=== PATIENT | female | born 1955 | race American Indian/Alaskan Native ===

== ENCOUNTER 2016-08-15 12:34 | Emergency (ER) | payer MEDICARE, OTHER ==
[2016-08-15 13:22] LABS: Basophils % (Auto) 0.7 % (0.0-1.8); Eosinophils % (Auto) 0.6 % (0.0-4.3); Hematocrit 39.5 % (30.3-42.9); Hemoglobin 13.1 gm/dl (10.1-14.3); Mean Corpuscular HGB Conc 33 % (30-34); Mean Corpuscular Hemoglobin 30 pg (28-32); Mean Corpuscular Volume 91 fl (79-97); Platelet Count 328 K/mm3 (140-440); Red Blood Count 4.32 M/mm3 (3.65-5.03); White Blood Count 4.9 K/mm3 (4.5-11.0)
[2016-08-15 13:39] LABS: INR 0.92 (0.87-1.13)
[2016-08-15 13:40] LABS: Partial Thromboplastin Time 30.9 Sec. (24.2-36.6)
[2016-08-15 13:49] LABS: Anion Gap 18 mmol/L; Blood Urea Nitrogen 46 mg/dL (7-17); Calcium 9.1 mg/dL (8.4-10.2); Carbon Dioxide 27 mmol/L (22-30); Chloride 97.9 mmol/L (98-107); Glucose 108 mg/dL (65-100); Sodium 140 mmol/L (137-145)
[2016-08-15 14:30] VITALS: BP 151/88
[2016-08-15] MEDS ORDERED: NACL 0.9% 1000 ML 1,000 ML IV ONE (14:43)
--- NOTE | 2016-08-15 14:49 | Emergency Department Report ---
ED Neuro Deficit HPI - General Chief Complaint: Neuro Symptoms/Deficit Stated Complaint: POSS STROKE Time Seen by Provider: 08/15/16 14:34 Source: patient Mode of arrival: Ambulatory Limitations: No Limitations - History of Present Illness Initial Comments: 60-year-old female presents to the emergency department complaining of slurred speech. Patient reports symptoms have been present for 3 days. She states her son has told her that it looks like the left side of her face is drooping. She denies headache. She denies numbness or tingling. She also denies weakness in her extremities. There are no other complaints. -: Gradual, days(s) (3) Location: speech, left face Presenting Symptoms: Present: Facial Droop/Numbness, Unable to Speak Clearly History of same: No Place: home Severity: mild Improves With: none Worsens With: none On Anticoagulants: No Context: gradual onset Associated Symptoms: denies other symptoms Treatments Prior to Arrival: none - Related Data Home Medications: Previous Rx's Medication Instructions Recorded Last Taken Type Cyclobenzaprine HCl [Flexeril] 10 mg PO TID #20 tablet 09/17/13 Unknown Rx HYDROcodone/APAP 5-325 [Badger 1 each PO Q6HR PRN #20 tablet 09/17/13 Unknown Rx 5/325 mg] Ibuprofen [Motrin] 600 mg PO Q8H PRN #50 tablet 09/17/13 Unknown Rx Allergies/Adverse Reactions: Allergies Allergy/AdvReac Type Severity Reaction Status Date / Time No Known Allergies Allergy Verified 08/15/16 12:42 ED Review of Systems ROS: Stated complaint: POSS STROKE Other details as noted in HPI Comment: All other systems reviewed and negative Neurological: as per HPI. denies: weakness, numbness, paresthesias ED Past Medical Hx - Past Medical History Previous Medical History?: Yes Hx Hypertension: Yes Hx Renal Disease: Yes Hx Psychiatric Treatment: Yes - Surgical History Hx Cholecystectomy: Yes - Family History Family history: no significant - Social History Smoking Status: Current Every Day Smoker Substance Use Type: Alcohol - Medications Home Medications: Home Medications Medication Instructions Recorded Confirmed Last Taken Type Cyclobenzaprine HCl [Flexeril] 10 mg PO TID #20 tablet 09/17/13 Unknown Rx HYDROcodone/APAP 5-325 [Badger 1 each PO Q6HR PRN #20 tablet 09/17/13 Unknown Rx 5/325 mg] Ibuprofen [Motrin] 600 mg PO Q8H PRN #50 tablet 09/17/13 Unknown Rx ED Neuro Physical Exam - General Limitations: No Limitations General appearance: alert, in no apparent distress Suspected Stroke: Yes - Head Head exam: Present: atraumatic, normocephalic - Eye Eye exam: Present: normal appearance, PERRL, EOMI - ENT ENT exam: Present: normal exam, normal orophraynx, mucous membranes moist - Neck Neck exam: Present: normal inspection, full ROM. Absent: tenderness - Respiratory Respiratory exam: Present: normal lung sounds bilaterally. Absent: respiratory distress - Cardiovascular Cardiovascular Exam: Present: regular rate, normal rhythm, normal heart sounds - GI/Abdominal GI/Abdominal exam: Present: soft, normal bowel sounds. Absent: distended, tenderness - Extremities Exam Extremities exam: Present: normal inspection, full ROM. Absent: tenderness - Back Exam Back exam: Present: normal inspection, full ROM. Absent: tenderness - Neurological Exam Neurological exam: Present: alert, oriented X3. Absent: motor sensory deficit - NIHSS Assessment Interval: Baseline 1a. Level of Consciousness: alert 1b. LOC Questions: answers correctly 1c. LOC Commands: performs tasks correctly 2. Best Gaze: normal 3. Visual: no visual loss 4. Facial Palsy: normal symmetrical movement 5b. Motor Arm Right: no drift 5a. Motor Arm Left: no drift 6a. Motor Leg Left: no drift 6b. Motor Leg Right: no drift 7. Limb Ataxia: absent 8. Sensory: normal 9. Best Language: no aphasia 10. Dysarthria: normal 11. Extinction/Inattention: no abnormality Total Score: 0 Stroke Severity: No Stroke Symptoms - Skin Skin exam: Present: warm, dry, intact ED Course Vital Signs 08/15/16 08/15/16 08/15/16 12:42 14:29 14:36 Temperature 97.7 F Pulse Rate 89 79 Respiratory 19 21 Rate Blood Pressure 140/89 Blood Pressure 151/88 [Left] O2 Sat by Pulse 98 98 99 Oximetry - Lab Data Result diagrams: 08/15/16 13:05 08/15/16 13:05 Lab Results 08/15/16 08/15/16 08/15/16 Range/Units 13:05 13:05 13:05 WBC 4.9 (4.5-11.0) K/mm3 RBC 4.32 (3.65-5.03) M/mm3 Hgb 13.1 (10.1-14.3) gm/dl Hct 39.5 (30.3-42.9) % MCV 91 (79-97) fl MCH 30 (28-32) pg MCHC 33 (30-34) % RDW 16.0 H (13.2-15.2) % Plt Count 328 (140-440) K/mm3 Lymph % (Auto) 42.2 H (13.4-35.0) % [place] % (Auto) 13.7 H (0.0-7.3) % Eos % (Auto) 0.6 (0.0-4.3) % Baso % (Auto) 0.7 (0.0-1.8) % Lymph # 2.1 (1.2-5.4) K/mm3 [place] # 0.7 (0.0-0.8) K/mm3 Eos # 0.0 (0.0-0.4) K/mm3 Baso # 0.0 (0.0-0.1) K/mm3 Seg Neutrophils % 42.8 (40.0-70.0) % Seg Neutrophils # 2.1 (1.8-7.7) K/mm3 PT 12.3 (12.2-14.9) Sec. INR 0.92 (0.87-1.13) APTT 30.9 (24.2-36.6) Sec. Thrombin Time (15.1-19.6) Sec. Sodium 140 (137-145) mmol/L Potassium 3.0 L (3.6-5.0) mmol/L Chloride 97.9 L (98-107) mmol/L Carbon Dioxide 27 (22-30) mmol/L Anion Gap 18 mmol/L BUN 46 H (7-17) mg/dL Creatinine 2.3 H (0.7-1.2) mg/dL Estimated GFR 26 ml/min BUN/Creatinine Ratio 20.00 % Glucose 108 H (65-100) mg/dL Calcium 9.1 (8.4-10.2) mg/dL Magnesium (1.7-2.3) mg/dL Troponin T < 0.010 (0.00-0.029) ng/mL 08/15/16 08/15/16 Range/Units 13:05 15:20 WBC (4.5-11.0) K/mm3 RBC (3.65-5.03) M/mm3 Hgb (10.1-14.3) gm/dl Hct (30.3-42.9) % MCV (79-97) fl MCH (28-32) pg MCHC (30-34) % RDW (13.2-15.2) % Plt Count (140-440) K/mm3 Lymph % (Auto) (13.4-35.0) % [place] % (Auto) (0.0-7.3) % Eos % (Auto) (0.0-4.3) % Baso % (Auto) (0.0-1.8) % Lymph # (1.2-5.4) K/mm3 [place] # (0.0-0.8) K/mm3 Eos # (0.0-0.4) K/mm3 Baso # (0.0-0.1) K/mm3 Seg Neutrophils % (40.0-70.0) % Seg Neutrophils # (1.8-7.7) K/mm3 PT (12.2-14.9) Sec. INR (0.87-1.13) APTT (24.2-36.6) Sec. Thrombin Time 15.4 (15.1-19.6) Sec. Sodium (137-145) mmol/L Potassium (3.6-5.0) mmol/L Chloride (98-107) mmol/L Carbon Dioxide (22-30) mmol/L Anion Gap mmol/L BUN (7-17) mg/dL Creatinine (0.7-1.2) mg/dL Estimated GFR ml/min BUN/Creatinine Ratio % Glucose (65-100) mg/dL Calcium (8.4-10.2) mg/dL Magnesium 1.8 (1.7-2.3) mg/dL Troponin T (0.00-0.029) ng/mL - EKG Data -: EKG Interpreted by [facility] EKG shows normal: sinus rhythm, intervals, QRS complexes, ST-T waves Rate: normal When compared to previous EKG there are: previous EKG unavailable Interpretation: other (left axis deviation) - Radiology Data Radiology results: report reviewed, image reviewed CT of the head shows chronic white matter ischemic changes. There are no acute changes compared to previous head CT in 2014. - Medical Decision Making Lab and imaging results reviewed and discussed with the patient. Patient continues to have no objective neurologic findings on exam. 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 - Differential Diagnosis stroke, tia, Blancas's palsy - Thrombolytic Inclusion/Exclusion Thrombolytic Exclusion Criteria: Symptom Onset > 3 Hours Critical care attestation.: If time is entered above; I have spent that time in minutes in the direct care of this critically ill patient, excluding procedure time. ED Disposition Clinical Impression: Blancas's palsy Disposition: DISCHARGED TO HOME OR SELFCARE Is pt being admited?: No Condition: Stable Instructions: Blancas Palsy (ED) Referrals: PRIMARY CARE, [Primary Care Provider] - 3-5 Days Time of Disposition: 16:13
--- NOTE | 2016-08-15 15:55 | Cat Scan Report ---
Cranial CT without contrast. History: Slurred speech and left facial droop. Findings: Comparison is made to the previous study performed on July 22, 2013. A chronic lacunar infarct in the alysha is unchanged. A chronic lacunar infarct in the left basal ganglia is stable. There are no masses or extra-axial collections. There is no evidence of an acute infarct or hemorrhage. The ventricles are unremarkable. Bilateral periventricular hypodensities consistent with chronic ischemic changesare again noted. The calvarium is intact. Impression: No acute findings or significant interval changes since July 22, 2013.
== END 2016-08-15 16:17 | disposition home or self-care (01) ==
LOC: ED 12:34
DX: G51.0 Bell's palsy (principal); I10 Essential (primary) hypertension; F17.200 Nicotine dependence, unspecified, uncomplicated
CPT/HCPCS: 36415; 70450; 80048; 83735; 84484; 85025; 85610; 85670; 85730; 93005; 93010; 96360; 99284; J7030

== ENCOUNTER 2016-09-19 12:15 | Outpatient (CLI) | payer MEDICARE ==
[2016-09-19 12:44] LABS: Hematocrit 41.2 % (30.3-42.9); Hemoglobin 13.5 gm/dl (10.1-14.3); Mean Corpuscular HGB Conc 33 % (30-34); Mean Corpuscular Hemoglobin 31 pg (28-32); Mean Corpuscular Volume 93 fl (79-97); Platelet Count 388 K/mm3 (140-440); Red Blood Count 4.42 M/mm3 (3.65-5.03); Red Cell Distribution Width 15.2 % (13.2-15.2); White Blood Count 4.7 K/mm3 (4.5-11.0)
[2016-09-19 13:22] LABS: Albumin 4.1 g/dL (3.9-5); BUN/Creatinine Ratio 19.04; Calcium 9.3 mg/dL (8.4-10.2); Magnesium 1.8 mg/dL (1.7-2.3); Phosphorous 3.6 mg/dL (2.5-4.5); Potassium 3.1 mmol/L (3.6-5.0)
== END 2016-09-19 12:16 | disposition home or self-care (01) ==
LOC: LAB 12:15
PROVIDERS: ATTEND Internal Medicine Nephrology
DX: I12.9 Hypertensive chronic kidney disease with stage 1 through stage 4 chronic kidney disease, or unspecified chronic kidney disease (principal); N18.3 Chronic kidney disease, stage 3 (moderate)
CPT/HCPCS: 36415; 80048; 82040; 82570; 83735; 83970; 84100; 84156; 85027

== ENCOUNTER 2016-09-26 11:01 | Outpatient (CLI) | payer MEDICARE ==
--- NOTE | 2016-09-26 13:10 | Ultrasound Report ---
ULTRASOUND RENAL INDICATION: Chronic kidney disease. COMPARISON: None similar. FINDINGS: Renal sonography somewhat limited due to patient's body habitus, though suggests mild to moderately increased renal cortical echogenicity. Grossly preserved contours. No hydronephrosis. RIGHT KIDNEY measures 7.7 x 4 x 3.4 cm with cortical thickness of 1.3 cm. A 7 mm cortical cyst inferiorly, image 10. LEFT KIDNEY estimated at 8 x 4.4 x 3.9 cm with cortical thickness of 1.4 cm. At least 2 small left mid to lower renal cysts identified measuring approximately 10 mm in size each. URINARY BLADDER suboptimally distended and assessed, though grossly unremarkable, in so far seen. CONCLUSION: No acute renal sonographic abnormality with underlying medical renal disease with mild bilateral renal atrophy and small bilateral renal cysts, as described. Please correlate. Thank you for the opportunity to participate in this patient's care.
== END 2016-09-26 11:02 | disposition home or self-care (01) ==
LOC: US 11:01
PROVIDERS: ATTEND Internal Medicine Nephrology
DX: I12.9 Hypertensive chronic kidney disease with stage 1 through stage 4 chronic kidney disease, or unspecified chronic kidney disease (principal); E87.6 Hypokalemia; N28.81 Hypertrophy of kidney; R60.9 Edema, unspecified; N28.1 Cyst of kidney, acquired; N26.1 Atrophy of kidney (terminal)
CPT/HCPCS: 76770

== ENCOUNTER 2019-03-07 17:16 | Emergency (ER) | payer MEDICARE ==
[2019-03-07 17:30] VITALS: BP 158/101
[2019-03-07] MEDS ORDERED: HYDROcodone/ACETAMINOPHEN 5-325 MG TAB PO ONE (18:01)
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
== END 2019-03-07 19:14 | disposition left against medical advice (07) ==
LOC: ED 17:16
DX: S00.83XA Contusion of other part of head, initial encounter (principal); I10 Essential (primary) hypertension; F17.200 Nicotine dependence, unspecified, uncomplicated; F10.10 Alcohol abuse, uncomplicated; Z90.49 Acquired absence of other specified parts of digestive tract; Z79.899 Other long term (current) drug therapy; V49.49XA Driver injured in collision with other motor vehicles in traffic accident, initial encounter; Y93.89 Activity, other specified; Y92.410 Unspecified street and highway as the place of occurrence of the external cause; Y99.8 Other external cause status

== ENCOUNTER 2019-03-09 15:16 | Inpatient (IN) | payer MEDICARE ==
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
--- NOTE | 2019-03-09 17:37 | XRay Report ---
LEFT KNEE 3 VIEWS. INDICATION / CLINICAL INFORMATION: knee pain COMPARISON: None available. FINDINGS: BONES / JOINT(S): Complex tibial plateau fracture with a longitudinal split extending through the int erspinous region. There is extension into both the medial and lateral tibial plateaus. Negative for s ignificant depression. No significant arthritis. SOFT TISSUES: Moderate joint effusion. ADDITIONAL FINDINGS: None. Signer Name: Isael Cooper MD Signed: 03/09/2019 5:33 PM Workstation Name: [id number]
[2019-03-09] MEDS ORDERED: MORPHINE 4 MG/1 ML INJ IM STA (20:01)
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
--- NOTE | 2019-03-10 01:02 | Cat Scan Report ---
CT lower extremity LT wo con INDICATION / CLINICAL INFORMATION: knee fracture. TECHNIQUE: Axial CT imaging of left lower extremity/knee was obtained without contrast. Coronal and sagittal ref ormatted imaging obtained and reviewed. All CT scans at this location are performed using CT dose re duction for ALARA by means of automated exposure control. COMPARISON: Conventional radiographs performed earlier today of the left knee FINDINGS: Distal femur is intact. Proximal fibula is intact. The patella is intact. There is comminuted fracture through the proximal tibia. There is transverse slightly impacted fractu re through the proximal metadiaphyseal region. There are intra-articular vertical oblique fractures o f the proximal medial and lateral portions of the tibia. There is no significant displacement. there is no tibial plateau depression. Lipohemarthrosis is present in the suprapatellar bursa. There is a 5 mm bone fragment in the intercon dylar notch region. There is significant soft tissue edema throughout the knee region. IMPRESSION: 1. Comminuted intra-articular fracture involving the proximal tibia. Fracture consists of 2 vertical oblique intra-articular fractures as well as a slightly impacted transverse fracture. I do not see si gnificant displacement. 2. Lipohemarthrosis. 3. 5 mm bone fragment within the knee joint, in the region of the intercondylar notch. Signer Name: Sally Raymond MD Signed: 03/10/2019 12:58 AM Workstation Name: [id number]
[2019-03-10] MEDS ORDERED: ceFAZolin/NS 1 GM/50 ML 1 GM/50 ML BAG IV STA (03:13)
[2019-03-10 03:36] LABS: Basophils # (Auto) 0.1 K/mm3 (0.0-0.1); Basophils % (Auto) 1.2 % (0.0-1.8); Eosinophils # (Auto) 0.1 K/mm3 (0.0-0.4); Eosinophils % (Auto) 1.2 % (0.0-4.3); Hematocrit 38.3 % (30.3-42.9); Hemoglobin 12.5 gm/dl (10.1-14.3); Lymphocytes # (Auto) 1.8 K/mm3 (1.2-5.4); Lymphocytes % (Auto) 24.7 % (13.4-35.0); Mean Corpuscular HGB Conc 33 % (30-34); Mean Corpuscular Volume 94 fl (79-97); Monocytes # (Auto) 1.1 K/mm3 (0.0-0.8); Monocytes % (Auto) 15.2 % (0.0-7.3); Platelet Count 372 K/mm3 (140-440); Red Blood Count 4.07 M/mm3 (3.65-5.03); Red Cell Distribution Width 15.5 % (13.2-15.2)
[2019-03-10 03:53] LABS: INR 0.94 (0.87-1.13)
[2019-03-10 04:02] LABS: Albumin 3.7 g/dL (3.9-5); Calcium 9.4 mg/dL (8.4-10.2)
[2019-03-10] MEDS ORDERED: ACETAMINOPHEN 325 MG TAB PO PRN (04:28)
[2019-03-10] MEDS ORDERED: ONDANSETRON 4 MG/2 ML INJ IV PRN (04:28)
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
[2019-03-10] MEDS ORDERED: MORPHINE 2 MG/1 ML INJ ONE (06:49)
[2019-03-10] MEDS: MORPHINE 2 MG/1 ML INJ IV PRN ×2 (06:50→15:42)
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
[2019-03-10] MEDS ORDERED: diphenhydrAMINE 50 MG/ML VIAL IV ONE (17:19)
[2019-03-10] MEDS: SODIUM CHLORIDE 0.9% 1000 ML 1,000 ML IV SCH (18:34)
[2019-03-11 07:20] LABS: INR 0.88 (0.87-1.13)
[2019-03-11 07:29] LABS: Hematocrit 36.8 % (30.3-42.9); Hemoglobin 11.9 gm/dl (10.1-14.3); Mean Corpuscular HGB Conc 32 % (30-34); Mean Corpuscular Volume 95 fl (79-97); Platelet Count 387 K/mm3 (140-440); Red Blood Count 3.87 M/mm3 (3.65-5.03); Red Cell Distribution Width 15.5 % (13.2-15.2)
[2019-03-11 07:34] LABS: Calcium 9.2 mg/dL (8.4-10.2)
[2019-03-11] MEDS ORDERED: diphenhydrAMINE 50 MG/ML VIAL IV ONE (08:00)
[2019-03-11 09:18] LABS: Basophils % (Manual) 0 % (0.0-1.8); Total Cells Counted 100
[2019-03-11 09:19] LABS: Anisocytosis Few; Macrocytosis Few; Platelet Estimate Consistent w Auto
[2019-03-11] MEDS ORDERED: PNEUMOCOCCAL 23 Valent 0.5 ML VIAL IM ONE (12:00)
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
[2019-03-11] MEDS: oxyCODONE /ACETAMINOPHEN 5-325MG TAB PO PRN ×2 (15:27→22:12)
[2019-03-11] MEDS: diphenhydrAMINE 50 MG/ML VIAL IV PRN ×2 (15:27→22:15)
--- NOTE | 2019-03-11 20:29 | Progress Note ---
Assessment and Plan Left tibial plateau fracture Recommendations - based on these x-ray and CT scan findings which show some loss of reduction I have recommended open reduction internal fixation using plates and screws Subjective Date of service: 03/11/19 Interval history: c/o left knee/leg pain, informed that surgery scheduled for tomorrow morning Objective Vital signs: Vital Signs - 12hr 03/11/19 16:30 Temperature 97 F L Pulse Rate 102 H Respiratory 16 Rate Blood Pressure 127/79 [Right] O2 Sat by Pulse 98 Oximetry - Labs CBC & BMP: 03/11/19 06:41 03/11/19 06:41 Labs: Abnormal lab results 03/11/19 03/11/19 03/11/19 Range/Units 06:41 06:41 06:41 RDW 15.5 H (13.2-15.2) % Monocytes % (Manual) 18.0 H (0.0-7.3) % Lymphocytes # (Manual) 1.1 L (1.2-5.4) K/mm3 Monocytes # (Manual) 1.0 H (0.0-0.8) K/mm3 PT 11.9 L (12.2-14.9) Sec. BUN 27 H (7-17) mg/dL Creatinine 1.4 H (0.7-1.2) mg/dL Glucose 104 H (65-100) mg/dL
[2019-03-12] MEDS ORDERED: MIDAZOLAM 2 MG/2 ML INJ IV NR (06:30)
[2019-03-12] MEDS ORDERED: GABAPENTIN 300 MG CAP PO NR (06:30)
[2019-03-12] MEDS ORDERED: CELECOXIB 200 MG CAP PO NR (06:30)
[2019-03-12] MEDS ORDERED: SODIUM CHLORIDE 0.9% 1000 ML 1,000 ML ONE ×2 (07:03→10:27)
[2019-03-12] MEDS ORDERED: SODIUM CHLORIDE 0.9% 1000 ML 1,000 ML IV SCH (07:30)
--- NOTE | 2019-03-12 07:34 | Anesthesia Consultation ---
Anesthesia Consult and Med Hx Date of service: 03/12/19 - Airway Anesthetic Teeth Evaluation: Good ROM Head & Neck: Adequate Mental/Hyoid Distance: Adequate Mallampati Class: Class II Intubation Access Assessment: Probably Good - Pulmonary Exam CTA: Yes - Cardiac Exam Cardiac Exam: RRR - Pre-Operative Health Status ASA Pre-Surgery Classification: ASA2 Proposed Anesthetic Plan: General - Pulmonary Hx Smoking: Yes (05/02 PPD) Hx Respiratory Symptoms: No - Cardiovascular System Hx Hypertension: Yes Hx Heart Attack/AMI: No Hx Percutaneous Transluminal Coronary Angioplasty (PTCA): No - Central Nervous System CVA: No - Endocrine Hx Renal Disease: Yes (CKD?) Hx Liver Disease: No Hx Non-Insulin Dependent Diabetes: Yes (prior hx; resolved with weight loss) Hx Thyroid Disease: No - Hematic Hx Anemia: Yes - Other Systems Hx Obesity: No - Additional Comments Anesthesia Medical History Comments: No hx anesthetic complications.
--- NOTE | 2019-03-12 07:34 | Anesthesia Day of Surgery ---
Anesthesia Day of Surgery - Day of Surgery Patient Examined: Yes Patient H&P Reviewed: Yes Patient is NPO: Yes
[2019-03-12] MEDS ORDERED: BUPIVACAINE/PF (0.25%) 2.5 MG/ML 30 ML VIAL INFILTRATI ONE ×2 (07:44→08:07)
[2019-03-12] MEDS ORDERED: LIDOCAINE MPF (2%) 20 MG/1 ML VIAL 5 ML ONE (07:47)
[2019-03-12] MEDS ORDERED: fentaNYL 100 MCG/2 ML INJ ONE ×2 (07:47)
[2019-03-12] MEDS ORDERED: HYDROmorphone 1 MG/1 ML INJ ONE (07:47)
[2019-03-12] MEDS ORDERED: PROPOFOL 200 MG/20 ML VIAL IV ONE (07:47)
[2019-03-12] MEDS ORDERED: HYDROmorphone 1 MG/1 ML INJ IV PRN (08:00)
[2019-03-12] MEDS ORDERED: fentaNYL 100 MCG/2 ML INJ IV PRN (08:00)
[2019-03-12] MEDS ORDERED: BUPIVACAINE/PF (0.5%) 5 MG/1 ML 30 ML VIAL INFILTRATI ONE ×3 (08:02→10:33)
[2019-03-12] MEDS ORDERED: SODIUM CHLORIDE 0.9% 50 ML ONE (08:02)
[2019-03-12] MEDS ORDERED: MORPHINE 10 MG/1 ML INJ ONE (08:02)
[2019-03-12] MEDS ORDERED: KETOROLAC 30 MG/1 ML INJ ONE ×2 (08:02→09:58)
[2019-03-12] MEDS ORDERED: SODIUM CHLORIDE 0.9% 100 ML ONE ×2 (08:03→09:49)
[2019-03-12] MEDS: fentaNYL 100 MCG/2 ML INJ IV ONE (08:18)
[2019-03-12] MEDS ORDERED: ceFAZolin/STERILE WATER 2 GM/20 ML SYRINGE IV NR (09:00)
[2019-03-12] MEDS ORDERED: SODIUM CHLORIDE 0.9% IRR 1,000 ML BOTTLE IR ONE (09:20)
[2019-03-12] MEDS ORDERED: ONDANSETRON 4 MG/2 ML INJ ONE (09:58)
--- NOTE | 2019-03-12 10:30 | Procedure Note ---
Date of procedure: 03/12/19 Pre-op diagnosis: Displaced left tibial plateau fracture Post-op diagnosis: same Procedure: Open reduction internal fixation left tibial plateau fracture Procedure The patient was brought to the OR after being given a femoral nerve block in preop holding He was placed on the OR table in the supine position following induction with Mac anesthesia the patient's left lower extremity was prepped and draped in the usual sterile manner. A timeout procedure was done to identify the patient and the correct operative site. Leg was exsanguinated followed by inflation of the pneumatic tourniquet to 300 mmHg. A medial hockey puck-type incision was made over the proximal tibia this was then taken down sharply through skin and subcutaneous the joint line was palpated next tunneling underneath the subcutaneous tissue on top of the pain is anserine bursa A pocket was made for R locking plate next a 7-hole contoured medial lock plate was applied temporarily using K wire next a AP x-ray was obtained showing positioning of the plate and fracture to locking screws were applied proximally the distal fragment was reduced and a nonlocking screw was applied the AP and lateral x-ray was obtained showing good reduction of the fracture and placement of the screws. The wound was copiously irrigated and was closed and in a standard routine fashion. Dressings were applied patient tolerated the procedure there were no complications Anesthesia: MAC, regional Surgeon: ASHLEY SANDERS School Bus Aide: JESSI BOCANEGRA Estimated blood loss: 50-100ml Pathology: none Condition: stable Disposition: PACU
[2019-03-12] MEDS ORDERED: SODIUM CHLORIDE 0.9% 250 ML IVPB IV ONE ×2 (10:33)
[2019-03-12] MEDS ORDERED: KETOROLAC 30 MG/1 ML INJ IV ONE ×2 (10:33)
[2019-03-12] MEDS ORDERED: fentaNYL 100 MCG/2 ML INJ IV ONE (10:45)
--- NOTE | 2019-03-12 12:14 | Post Anesthesia Evaluation ---
- Post Anesthesia Evaluation Patient Participated: Yes Airway Patent: Yes Stable Respiratory Function: Yes Nausea/Vomiting: No Temp > 96.8F: Yes Pain Manageable: Yes Adequeate Hydration: Yes Anesthesia Complications: No Block Receding Appropriately: Not Applicable (block for post op pain control)
--- NOTE | 2019-03-12 12:31 | XRay Report ---
LEFT THE, 2 VIEWS INDICATION: LT KNEE FX// ORIF TIB PLATAEU. COMPARISON: None. IMPRESSION: 3 fluoroscopic images of the left knee are presented after surgery demonstrate internal fixation of a tibial plateau fracture. Alignment appears anatomic. The distal femur and proximal fib michael are grossly intact. Signer Name: Sam Barry Jr, MD Signed: 03/12/2019 12:26 PM Workstation Name: [id number]
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
[2019-03-12 15:25] LABS: Calcium 8.5 mg/dL (8.4-10.2)
[2019-03-12] MEDS: MORPHINE 2 MG/1 ML INJ IV PRN ×2 (15:41→21:12)
[2019-03-12] MEDS: SODIUM CHLORIDE 0.9% 1000 ML 1,000 ML IV SCH (15:50)
[2019-03-12] MEDS: diphenhydrAMINE 50 MG/ML VIAL IV PRN (21:23)
[2019-03-12] MEDS ORDERED: PHENOL 1.4% 177 ML BOTTLE MM PRN (22:49)
[2019-03-12] MEDS ORDERED: PNEUMOCOCCAL 23 Valent 0.5 ML VIAL IM ONE (23:00)
[2019-03-12] MEDS: oxyCODONE /ACETAMINOPHEN 5-325MG TAB PO PRN (23:35)
[2019-03-12] MEDS ORDERED: hydrALAZINE 20 MG/1 ML INJ IV PRN (23:47)
[2019-03-13] MEDS ORDERED: HYDROmorphone 1 MG/1 ML INJ IV ONE (00:49)
[2019-03-13] MEDS: SODIUM CHLORIDE 0.9% 1000 ML 1,000 ML IV SCH (04:28)
[2019-03-13] MEDS: oxyCODONE /ACETAMINOPHEN 5-325MG TAB PO PRN ×3 (09:51→21:39)
[2019-03-13] MEDS ORDERED: ENOXAPARIN 40 MG/0.4 ML INJ SUB-Q SCH (10:00)
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
[2019-03-13 16:22] LABS: Calcium 8.5 mg/dL (8.4-10.2)
--- NOTE | 2019-03-13 20:27 | Progress Note ---
Assessment and Plan S/P ORIF left proximal tibia post op day 1 continue PT, hopefully dc soon f/u in my office in 10 days Subjective Date of service: 03/13/19 Interval history: c/o incisional pain, otherwise ok, PT started... Objective Vital signs: Vital Signs - 12hr 03/13/19 03/13/19 12:55 19:15 Temperature 97.5 F L 98.4 F Pulse Rate 102 H 93 H Respiratory 16 16 Rate Blood Pressure 136/83 135/82 O2 Sat by Pulse 100 98 Oximetry Incision: clean and dry Weight bearing status: partial - Labs CBC & BMP: 03/11/19 06:41 03/13/19 15:49 Labs: Abnormal lab results 03/13/19 Range/Units 15:49 Sodium 136 L (137-145) mmol/L Potassium 5.2 H D (3.6-5.0) mmol/L Carbon Dioxide 19 L (22-30) mmol/L BUN 29 H (7-17) mg/dL Creatinine 1.7 H (0.7-1.2) mg/dL Glucose 106 H (65-100) mg/dL
[2019-03-13] MEDS ORDERED: risperiDONE 0.25 MG TAB PO SCH (23:30)
[2019-03-14] MEDS: oxyCODONE /ACETAMINOPHEN 5-325MG TAB PO PRN (09:17)
[2019-03-14] MEDS ORDERED: amLODIPine 10 MG TAB PO SCH (10:00)
[2019-03-14] MEDS ORDERED: ENOXAPARIN 30 MG/0.3 ML INJ SUB-Q SCH (10:00)
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
[2019-03-14 12:14] VITALS: BP 146/84
[2019-03-15] MEDS ORDERED: ENOXAPARIN 40 MG/0.4 ML INJ SUB-Q SCH (10:00)
== END 2019-03-14 14:30 | disposition home health service (06) | DRG 492 ==
LOC: ED 15:16 → 3B-SURG 03-10 05:32
PROVIDERS: ADMIT Internal Medicine Geriatric Medicine; ATTEND Internal Medicine
PROC: 0QSH04Z Reposition Left Tibia with Internal Fixation Device, Open Approach (ICD-10-PCS; principal; 2019-03-12)
PROC: 3E0234Z Introduction of Serum, Toxoid and Vaccine into Muscle, Percutaneous Approach (ICD-10-PCS; 2019-03-12)
DX: S82.142A Displaced bicondylar fracture of left tibia, initial encounter for closed fracture (principal); N17.0 Acute kidney failure with tubular necrosis; S00.83XA Contusion of other part of head, initial encounter; F17.200 Nicotine dependence, unspecified, uncomplicated; I10 Essential (primary) hypertension; E87.5 Hyperkalemia; Z90.49 Acquired absence of other specified parts of digestive tract; V49.59XA Passenger injured in collision with other motor vehicles in traffic accident, initial encounter; Y93.89 Activity, other specified; Y92.488 Other paved roadways as the place of occurrence of the external cause; Y99.8 Other external cause status; Z23 Encounter for immunization
CPT/HCPCS: 36415; 80048; 80053; 85007; 85025; 85610; 90732; 99406; G0378; C1713; J0360; J0690; J1170; J1200; J1650; J1885; J2250; J2270; J2405; J2704; J3010; J7030; J7050